=== PATIENT | male | born 1995 | race Caucasian/White ===

== ENCOUNTER 2020-11-08 23:33 | Emergency (ER) | payer OTHER ==
[~2020-11-08] VITALS: Ht 182.9 cm; Wt 112.5 kg
[2020-11-08 23:37] VITALS: BP 159/85
--- NOTE | 2020-11-08 23:42 | NUR ---
Pt ambulated to lobby w/ steady gait. VSS. No acute distress noted.
--- NOTE | 2020-11-08 23:54 | NUR ---
AMBULATED TO ER BED 4
--- NOTE | 2020-11-08 23:55 | NUR ---
AMBULATED TO BED 4 FROM LOBBY WITH C/O GUM PAIN X 2 WEEKS. " THE DENTIST IS CLOSED ON THE WEEKEND". 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 PMH: CHOLESTEROL NKDA
--- NOTE | 2020-11-09 00:17 | NUR ---
DR. ZHONG AT BEDSIDE FOR EXAM
[2020-11-09] MEDS ORDERED: AMOXICILLIN 500 MG CAP PO ONE (00:20)
[2020-11-09] MEDS ORDERED: KETOROLAC 60 MG/2 ML VIAL IM ONE (00:20)
[2020-11-09] MEDS ORDERED: AMOX500C25 PO (00:22)
[2020-11-09] MEDS ORDERED: TRAM50TA3 PO (00:22)
[2020-11-09 00:35] VITALS: BP 159/85
--- NOTE | 2020-11-09 00:35 | NUR ---
Patient discharged with v/s stable. Written and verbal after care instructions given and explained. Patient alert, oriented and verbalized understanding of instructions. Ambulatory with steady gait. All questions addressed prior to discharge. ID band removed. Patient advised to follow up with PMD. Rx of AMOXICILLIN, TRAMADOL given. Patient educated on indication of medication including possible reaction and side effects. Opportunity to ask questions provided and answered.
== END 2020-11-09 00:35 | disposition home or self-care (01) ==
LOC: MED 23:33
DX: K04.7 Periapical abscess without sinus (principal); E78.00 Pure hypercholesterolemia, unspecified
CPT/HCPCS: 96372; 99283; J1885

== ENCOUNTER 2022-11-10 14:44 | Emergency (ER) | payer OTHER ==
[~2022-11-10] VITALS: Ht 182.9 cm; Wt 119.3 kg
[~2022-11-10 14:44] MED LIST: AMOX500C25 PO; TRAM50TA3 PO
[2022-11-10 14:50] VITALS: BP 148/70
--- NOTE | 2022-11-10 15:00 | NUR ---
27/M WALKED IN C/O DIZZINESS AND LIGHTHEADEDNESS ONSET LAST NIGHT. PT DENIES LOC OR NVD. DENIES HEADACHE. AAO4, AMBULATORY, VITALS STABLE. NO ACUTE DISTRESS NOTED PMH: DENIES
[2022-11-10 17:58] LABS: BASOPHILS % (AUTO) 0.4 % (0.0-2.0); EOSINOPHILS % (AUTO) 0.4 % (0.0-4.0); HEMATOCRIT 48.4 % (36-52); HEMOGLOBIN 16.3 g/dL (12.0-18.0); LYMPHOCYTES # (AUTO) 2.5 K/uL (2.0-11.5); LYMPHOCYTES % (AUTO) 24.5 % (20.5-51.1); MEAN CORPUSCULAR HEMOGLOBIN 29 pg (27-31); MEAN CORPUSCULAR HGB CONC 34 g/dL (33-37); MEAN CORPUSCULAR VOLUME 87.6 fL (80-94); MONOCYTES # (AUTO) 0.8 K/uL (0.8-1.0); MONOCYTES % (AUTO) 7.3 % (1.7-9.3); NEUTROPHILS % (AUTO) 67.4 % (42.2-75.2); PLATELET COUNT (AUTO) 307 K/uL (140-450); RED BLOOD CELL COUNT(AUTO) 5.52 MIL/uL (4.20-6.10); RED CELL DISTRIBUTION WIDTH 13.2 % (11.6-13.7); WHITE BLOOD COUNT (AUTO) 10.4 K/uL (4.8-10.8)
[2022-11-10 18:13] LABS: ALBUMIN 4.3 g/dL (3.4-5.0); ANION GAP 13.6 (8-16); CARBON DIOXIDE 31.6 mmol/L (21-32); CREATININE 0.9 mg/dL (0.6-1.3); POTASSIUM 4.2 mmol/L (3.5-5.1); TOTAL BILIRUBIN 0.5 mg/dL (0.0-1.0)
[2022-11-10] MEDS ORDERED: MECL-303 PO (18:34)
[2022-11-10 18:53] VITALS: BP 148/70
--- NOTE | 2022-11-10 18:53 | NUR ---
Patient discharged with v/s stable. Written and verbal after care instructions ABOUT DIZZINESS given and explained. Patient alert, oriented and verbalized understanding of instructions. Ambulatory with steady gait. All questions addressed prior to discharge. ID band removed. Patient advised to follow up with PMD. Rx of MECLIZINE given. Patient educated on indication of medication including possible reaction and side effects. Opportunity to ask questions provided and answered.
== END 2022-11-10 18:53 | disposition home or self-care (01) ==
LOC: MED 14:44
DX: R42 Dizziness and giddiness (principal); E11.9 Type 2 diabetes mellitus without complications; E78.5 Hyperlipidemia, unspecified; Z79.899 Other long term (current) drug therapy; Z79.2 Long term (current) use of antibiotics; Z79.891 Long term (current) use of opiate analgesic
CPT/HCPCS: 36415; 80053; 85025; 93005; 99284